=== PATIENT | female | born 1965 | race Caucasian/White ===

== ENCOUNTER → 2018-12-18 | Outpatient (CLI) | payer OTHER ==
[2018-12-18 14:54] LABS: Basophils % (A) 1 %; Eosinophils # (A) 0.1 k/uL (0-0.7); Eosinophils % (A) 2 %; HCT 44.4 % (34.0-46.0); HGB 14.6 gm/dL (11.4-16.0); Lymphocytes # (A) 1.2 k/uL (1.0-4.8); Lymphocytes % (A) 23 %; MCH 31.1 pg (25.0-35.0); MCHC 32.9 g/dL (31.0-37.0); MCV 94.4 fL (80.0-100.0); Mean Platelet Volume 8.2; Monocytes # (A) 0.3 k/uL (0-1.0); Monocytes % (A) 6 %; Neutrophils # (A) 3.5 k/uL (1.3-7.7); Neutrophils % (A) 66 %; Platelet Count 288 k/uL (150-450); RBC 4.71 m/uL (3.80-5.40); RDW 12.4 % (11.5-15.5); WBC 5.3 k/uL (3.8-10.6)
== END | disposition home or self-care (01) ==
LOC: LABPAT 13:38
PROVIDERS: ATTEND Obstetrics & Gynecology
DX: Z01.818 Encounter for other preprocedural examination (principal)
CPT/HCPCS: 36415; 85025; 93005

== ENCOUNTER 2018-12-28 06:29 | Day surgery (SDC) | payer OTHER ==
[2018-12-21 12:09] VITALS: BMI 23.3
--- NOTE | 2018-12-27 17:14 | P.HPOB ---
History of Present Illness H&P Date: 12/27/18 Chief Complaint: MAEVE-2 This is a 53-year-old female 1 para 1 who presents for loop electrocautery excision procedure with colposcopy secondary to MAEVE-2 found on colposcopy recently. Her Pap smear was read out as low-grade BENJAMIN and she did have positive high risk HPV. Colposcopy revealed MAEVE-1 and MAEVE-2. She has previously been treated with cryotherapy in her 20s. Obstetrical history: . History of 1 vaginal delivery. Gynecologic history: No other history of STDs. She does have a history of an abnormal Pap smear in her 20s and did receive cryo-. Her Pap smear in 2008 showed atypical squamous cells of undetermined significance with positive high risk HPV. Colposcopy at that time showed koilocytotic atypia. Repeat Pap smear in 2008 showed low-grade's, central epithelial lesion of the cervix. Pap smear in 2009 was within normal limits. Pap smear in 2010 showed low-grade. Most recent Pap smear in October 2018 shows low-grade with positive high-risk HPV. Social history: She is single. She has no current partner. She works as a manager business process. Review of Systems Constitutional: Reports fatigue, Reports night sweats, Denies chills, Denies fever Eyes: bilateral blurred vision, denies pain Ears, nose, mouth and throat: Denies headache, Denies sore throat Cardiovascular: Denies chest pain, Denies shortness of breath Respiratory: Denies cough Gastrointestinal: Denies abdominal pain, Denies diarrhea, Denies nausea, Denies vomiting Genitourinary: Reports stress incontinence, Denies dysuria, Denies hematuria Menstruation: Reports postmenopausal Musculoskeletal: Denies myalgias Integumentary: Denies pruritus, Denies rash Neurological: Denies numbness, Denies weakness Psychiatric: Reports anxiety Past Medical History Past Medical History: Osteoarthritis (OA) Additional Past Medical History / Comment(s): rectal abscess; endometriosis History of Any Multi-Drug Resistant Organisms: MRSA Date of last positivie culture/infection: 12/26/15 MDRO Source:: Buttock Past Surgical History: Orthopedic Surgery, Tonsillectomy Additional Past Surgical History / Comment(s): colonoscopy, surgery on left knee, right ankle. Laparoscopy-endometriosis. Breast augmentation. Several I &D of left groin abscess Past Anesthesia/Blood Transfusion Reactions: Postoperative Nausea & Vomiting ( PONV) Past Psychological History: Anxiety Smoking Status: Former smoker Past Alcohol Use History: Occasional Past Drug Use History: None Reported - Past Family History Sister(s) Family Medical History: Cancer Additional Family Medical History / Comment(s): OVARIAN CANCER Father Family Medical History: Cancer Additional Family Medical History / Comment(s): pancreatic cancer Mother Family Medical History: Cancer, Hypertension Medications and Allergies Home Medications Medication Instructions Recorded Confirmed Type Calcium Carbonate [Calcium] 1,200 mg PO DAILY 01/05/16 12/21/18 History Cholecalciferol [Vitamin D3] 1,000 unit PO DAILY 03/31/16 12/21/18 History Ascorbic Acid [Vitamin C] 500 mg PO BID 04/01/16 12/21/18 History Tetrahydrozoline HCl [Visine Eye 1 drop BOTH EYES DAILY PRN 04/01/16 12/21/18 History Drops] Turmeric Root Extract [Turmeric] 500 mg PO BID 12/21/18 12/21/18 History diphenhydrAMINE [Benadryl] 25 mg PO BID PRN 12/21/18 12/21/18 History Allergies Allergy/AdvReac Type Severity Reaction Status Date / Time adhesive Allergy Severe Rash/Hives Verified 12/21/18 11:36 amoxicillin Allergy Rash/Hives Verified 12/21/18 11:36 morphine AdvReac Vomiting Verified 12/21/18 11:36 Exam Osteopathic Statement: *. No significant issues noted on an osteopathic structural exam other than those noted in the History and Physical/Consult. HEENT: Within normal limits Heart: Regular rate and rhythm Lungs: Clear to auscultation bilaterally Abdomen: Soft, nontender Pelvic exam: Uterus is small, anteverted, nontender with no adnexal masses or tenderness palpated Extremities: Negative Homans Assessment and Plan (1) MAEVE II (cervical intraepithelial neoplasia II) Status: Acute Code(s): N87.1 - MODERATE CERVICAL DYSPLASIA SNOMED Code(s): 393016882 Plan: Proceed with loop electrocautery excision procedure with colposcopy. I have discussed the risks, benefits, and alternative therapies for the above- mentioned procedure and for both sedation/anesthesia as well as necessary blood products administration, if indicated, as they pertain to this patient. The patient has indicated her understanding and acceptance of the risks and procedures discussed.
[~2018-12-28 06:29] MED LIST: DEXAMETHASONE SOD PHOSPHATE 10 MG/ML 1 ML VIAL IV ONE; LACTATED RINGERS 1,000 ML IV SCH; LIDOCAINE 1% 20 ML VIAL (10MG/ML) FOR IV START INTRADERMA PRN; MIDAZOLAM 2 MG/2 ML VIAL IV PRN; ONDANSETRON 4 MG/2 ML VIAL IVP ONE; Pre Op ABX Message 1 EACH MISC MISCELLANE ONE; fentaNYL (PF) 50 MCG/ML 2 ML AMP IV PRN
[2018-12-28] MEDS ORDERED: LACTATED RINGERS 1,000 ML IV ONE (07:11)
[2018-12-28] MEDS ORDERED: PROPOFOL 10 MG/ML 20 ML VIAL IV ONE (07:29)
[2018-12-28] MEDS ORDERED: fentaNYL (PF) 50 MCG/ML 2 ML AMP ONE (07:29)
[2018-12-28] MEDS ORDERED: LIDOCAINE 1% INJ 10MG/ML (20 ML MDV) ONE (07:29)
[2018-12-28] MEDS ORDERED: ROPIVACAINE 5 MG/ML 30 ML VIAL MISCELLANE ONE ×2 (07:50)
[2018-12-28] MEDS ORDERED: LIDOCAINE 1%-EPI 1:100,000 20 ML VIAL SQ ONE ×2 (07:50)
[2018-12-28] MEDS ORDERED: ACETIC ACID 15 DROPS/ML DROPS MISCELLANE ONE (07:50)
[2018-12-28] MEDS ORDERED: FERRIC SUBSULFATE (MONSELS) JAR TOPICAL ONE (07:50)
--- NOTE | 2018-12-28 08:02 | P.OP ---
Date of Procedure: 12/28/18 Preoperative Diagnosis: MAEVE-2 Postoperative Diagnosis: Cervical dysplasia Procedure(s) Performed: Colposcopy with loop electrocautery excision procedure Anesthesia: other (Mask general) Surgeon: Marilyn Hilario Estimated Blood Loss (ml): 2 Pathology: other (Ectocervix-9 o'clock position marked with a suture and 3 o' clock position separate piece) Condition: stable Disposition: same day Indications for Procedure: This is a 53-year-old female 1 para 1 who presents for loop electrocautery excision procedure with colposcopy secondary to MAEVE-2 found on colposcopy recently. Her Pap smear was read out as low-grade BENJAMIN and she did have positive high risk HPV. Colposcopy revealed MAEVE-1 and MAEVE-2. She has previously been treated with cryotherapy in her 20s. Operative Findings: Colposcopy was performed using a blue light. Cervix was swabbed with acetic acid and Lugol solution. Some distortion of the ectocervix was noted at approximately 2:00 border. No mosaicism was noted. The same area appeared Lugol white. Description of Procedure: The patient was taken to the operating room she's placed in the dorsal lithotomy position. She is prepped and draped in the normal sterile fashion. Her bladder was drained with a catheter. A coated bivalve speculum was placed in the patient's vagina. Cervix is visualized. Colposcopy is performed using a blue light. Cervix is swabbed with 5% acetic acid solution. The above noted findings are made. Next the cervix is swabbed with Lugol solution. The same findings are noted. Next the cervix was circumferentially injected with a 50- 50 mixture of 1% lidocaine with epinephrine and half percent Marcaine. Approximately 7 mL were used to inject circumferentially around the cervix using a spinal needle. Next the large loop was used with 35 W cutting power to excise from left to right removing the ectocervix. There was still noted to be as piece on the 3:00 border that was removed separately. First pieces labeled at the 9 o'clock position with a suture. The separate piece is a 3 o'clock position. Next the bed that is left behind is cauterized with ball-tipped cautery. Excellent hemostasis is noted. Monsel solution is applied. Excellent hemostasis is noted. All instrument's are removed from the vagina. All sponge and needle counts are correct. The patient is then taken to recovery room in stable condition.
[2018-12-28 08:21] VITALS: TEMP 97.9
[2018-12-28 09:04] VITALS: RESP 16
[2018-12-28] MEDS ORDERED: MEPERIDINE 50 MG/ML SYRINGE IVP ONE (09:22)
[2018-12-28 09:53] VITALS: BP 102/64
[2018-12-28 10:13] VITALS: PULSE 55
== END 2018-12-28 10:45 | disposition home or self-care (01) ==
LOC: OR 06:29
PROVIDERS: ATTEND Obstetrics & Gynecology
DX: N87.1 Moderate cervical dysplasia (principal); N39.3 Stress incontinence (female) (male); F41.9 Anxiety disorder, unspecified; M19.90 Unspecified osteoarthritis, unspecified site; Z80.41 Family history of malignant neoplasm of ovary; Z86.14 Personal history of Methicillin resistant Staphylococcus aureus infection; Z87.891 Personal history of nicotine dependence; Z88.5 Allergy status to narcotic agent; Z88.0 Allergy status to penicillin; Z91.09 Other allergy status, other than to drugs and biological substances; Z80.8 Family history of malignant neoplasm of other organs or systems
CPT/HCPCS: 88307; 57460; J2250; J1100; J2175; J2405; J2001; J3010; J2795; J2704

== ENCOUNTER 2019-03-29 00:31 | Emergency (ER) | payer OTHER ==
[2019-03-29 00:39] VITALS: BP 143/80; PULSE 71; RESP 20; TEMP 97.7
[2019-03-29] MEDS ORDERED: CEPHALEXIN 500MG STARTER PACK 4 CAP BTL PO STA (01:13)
--- NOTE | 2019-03-29 01:15 | ED ---
Skin/Abscess/FB HPI - General Chief complaint: Skin/Abscess/Foreign Body Stated complaint: Rt Hand Index Finger Infection Time Seen by Provider: 03/29/19 00:44 Source: patient Mode of arrival: ambulatory Limitations: no limitations - History of Present Illness Initial comments: 54-year-old female presenting today for chief complaint of left index finger redness. Patient states she began noticing redness near the cuticle of her left index finger on Friday. Patient states it has since been increasing. Patient denies fever chills night sweats. Upon arrival patient appears well no signs of acute distress. Remaining review of system negative. Denies recent antibiotic use. - Related Data Home Medications Medication Instructions Recorded Confirmed Calcium Carbonate [Calcium] 1,200 mg PO DAILY 01/05/16 12/21/18 Cholecalciferol [Vitamin D3] 1,000 unit PO DAILY 03/31/16 12/21/18 Ascorbic Acid [Vitamin C] 500 mg PO BID 04/01/16 12/21/18 Tetrahydrozoline HCl [Visine Eye 1 drop BOTH EYES DAILY PRN 04/01/16 12/21/18 Drops] Turmeric Root Extract [Turmeric] 500 mg PO BID 12/21/18 12/21/18 diphenhydrAMINE [Benadryl] 25 mg PO BID PRN 12/21/18 12/21/18 Previous Rx's Medication Instructions Recorded Cephalexin [Keflex] 500 mg PO Q8HR 5 Days #15 cap 03/29/19 Allergies Allergy/AdvReac Type Severity Reaction Status Date / Time adhesive Allergy Severe Rash/Hives Verified 03/29/19 00:39 amoxicillin Allergy Rash/Hives Verified 03/29/19 00:39 morphine AdvReac Vomiting Verified 03/29/19 00:39 Review of Systems ROS Statement: Those systems with pertinent positive or pertinent negative responses have been documented in the HPI. ROS Other: All systems not noted in ROS Statement are negative. Past Medical History Past Medical History: Osteoarthritis (OA), Skin Disorder Additional Past Medical History / Comment(s): rectal abscess History of Any Multi-Drug Resistant Organisms: MRSA Date of last positivie culture/infection: 12/26/15 MDRO Source:: Buttock Past Surgical History: Orthopedic Surgery, Tonsillectomy Additional Past Surgical History / Comment(s): colonoscopy 2009 and 2014, surgery on left knee and right ankle. Past Anesthesia/Blood Transfusion Reactions: Postoperative Nausea & Vomiting (PONV) Past Psychological History: No Psychological Hx Reported Smoking Status: Former smoker Past Alcohol Use History: None Reported Past Drug Use History: None Reported - Past Family History Sister(s) Family Medical History: Cancer Additional Family Medical History / Comment(s): OVARIAN CANCER Father Family Medical History: Cancer Additional Family Medical History / Comment(s): pancreatic cancer Mother Family Medical History: Cancer, Hypertension General Exam - General Exam Comments Initial Comments: General: The patient is awake and alert, in no distress, and does not appear acutely ill. Eye: Pupils are equal, round and reactive to light, extra-ocular movements are intact. No nystagmus. There is normal conjunctiva bilaterally. No signs of icterus. Cardiovascular: There is a regular rate and rhythm. No murmur, rub or gallop is appreciated. Respiratory: Lungs are clear to auscultation, respirations are non-labored, breath sounds are equal. No wheezes, stridor, rales, or rhonchi. Musculoskeletal: Normal ROM, no tenderness. Strength 5/5. Sensation intact. Pulses equal bilaterally 2+. Neurological: A&O x 3. CN II-XII intact, There are no obvious motor or sensory deficits. Coordination appears grossly intact. Speech is normal. Skin: Skin is warm and dry and no rashes. Paronychia I of the left index finger. No evidence of failing Psychiatric: Cooperative, appropriate mood & affect, normal judgment. Limitations: no limitations Course Vital Signs 03/29/19 00:34 Temperature 97.7 F Pulse Rate 71 Respiratory 20 Rate Blood Pressure 143/80 O2 Sat by Pulse 100 Oximetry Procedures - Incision & Drainage Consent Obtained: verbal consent Site: hand (left index finger) Size (cm): 1 I&D Cleaning Method: Iodine Scalpel Used: #11 I&D Drainage Obtained: Pus, Blood Culture Obtained?: No Patient Tolerated Procedure: well, no complications Medical Decision Making - Medical Decision Making Paronychia on examination. I&D performed. Purulent drainage obtained. No evidence of failing. Patient is no constitutional symptoms. Afebrile upon arrival. Patient be started on Keflex and warm soaks at home. Return parameters were discussed with patient. Patient verbalizes understanding. Patient is discharged. Well stating she had pain relief from the I&D. Discussed case with . provider Dr. Figueroa who is agreeable care plan at discharge at this time Disposition Clinical Impression: Acute paronychia Disposition: HOME SELF-CARE Condition: Good Instructions (If sedation given, give patient instructions): Paronychia (ED) Additional Instructions: Please use medication as discussed. Please follow-up with family doctor in the next 2 days of symptoms have not improved. Please return to emergency room if the symptoms increase or worsen or for any other concerns. Prescriptions: Cephalexin [Keflex] 500 mg PO Q8HR 5 Days #15 cap Is patient prescribed a controlled substance at d/c from ED?: No Referrals: None,Stated [Primary Care Provider] - 1-2 days Time of Disposition: 01:14
== END 2019-03-29 01:50 | disposition home or self-care (01) ==
LOC: EC 00:31
DX: L03.012 Cellulitis of left finger (principal); M19.90 Unspecified osteoarthritis, unspecified site; Z86.14 Personal history of Methicillin resistant Staphylococcus aureus infection; Z87.891 Personal history of nicotine dependence; Z79.899 Other long term (current) drug therapy; Z88.0 Allergy status to penicillin; Z88.5 Allergy status to narcotic agent; Z91.048 Other nonmedicinal substance allergy status
CPT/HCPCS: 10060; 99282

== ENCOUNTER 2019-06-21 00:25 | Emergency (ER) | payer OTHER ==
[2019-06-21] MEDS ORDERED: LIDOCAINE 1% INJ 10MG/ML (20 ML MDV) SQ ONE (02:45)
[2019-06-21] MEDS ORDERED: IBUPROFEN 600 MG TAB PO STA (02:48)
[2019-06-21] MEDS ORDERED: ACETAMINOPHEN TAB 500 MG TAB PO STA (02:48)
--- NOTE | 2019-06-21 02:48 | ED ---
Skin/Abscess/FB HPI - General Chief complaint: Skin/Abscess/Foreign Body Stated complaint: Abscess Time Seen by Provider: 06/21/19 02:31 Source: patient Mode of arrival: ambulatory Limitations: no limitations - History of Present Illness Initial comments: 54 year-old female patient presents to the emergency department today for evaluation of abscess to the left parietal scalp. Patient states that she has had the abscess for the last 9-10 days. Patient states that she was seen and evaluated at [facility] on for this. States she was started on Bactrim and discharged. She states he did not perform incision and drainage of the area. Patient states that the abscess seems to be worsening. States that she is having pain to the area as well as a generalized headache from this. She denies any fever or chills. Denies any nausea or vomiting. Patient states that she has had abscesses in the past and has been diagnosed wit h MRSA. She denies any history of abscess to the scalp. Patient denies any recent rash, shortness breath, chest pain, abdominal pain, diarrhea, constipation, back pain, numbness, tingling, dizziness, weakness, hematuria, dysuria, urinary urgency, urinary frequency, visual changes, or any other complaints. - Related Data Home Medications Medication Instructions Recorded Confirmed Calcium Carbonate [Calcium] 1,200 mg PO DAILY 01/05/16 12/21/18 Cholecalciferol [Vitamin D3 (25 1,000 unit PO DAILY 03/31/16 12/21/18 Mcg = 1000 Iu)] Ascorbic Acid [Vitamin C] 500 mg PO BID 04/01/16 12/21/18 Tetrahydrozoline HCl [Visine Eye 1 drop BOTH EYES DAILY PRN 04/01/16 12/21/18 Drops] Turmeric Root Extract [Turmeric] 500 mg PO BID 12/21/18 12/21/18 diphenhydrAMINE [Benadryl] 25 mg PO BID PRN 12/21/18 12/21/18 Previous Rx's Medication Instructions Recorded Cephalexin [Keflex] 500 mg PO Q8HR 5 Days #15 cap 03/29/19 Sulfamethoxazole/Trimethoprim 2 each PO BID #40 tablet 06/21/19 [Bactrim DS 800-160 mg] Allergies Allergy/AdvReac Type Severity Reaction Status Date / Time adhesive Allergy Severe Rash/Hives Verified 03/29/19 00:39 amoxicillin Allergy Rash/Hives Verified 03/29/19 00:39 morphine AdvReac Vomiting Verified 03/29/19 00:39 Review of Systems ROS Statement: Those systems with pertinent positive or pertinent negative responses have been documented in the HPI. ROS Other: All systems not noted in ROS Statement are negative. Past Medical History Past Medical History: Osteoarthritis (OA), Skin Disorder Additional Past Medical History / Comment(s): rectal abscess History of Any Multi-Drug Resistant Organisms: MRSA Date of last positivie culture/infection: 12/26/15 MDRO Source:: Buttock Past Surgical History: Orthopedic Surgery, Tonsillectomy Additional Past Surgical History / Comment(s): colonoscopy 2009 and 2014, surgery on left knee and right ankle. Past Anesthesia/Blood Transfusion Reactions: Postoperative Nausea & Vomiting (PONV) Past Psychological History: No Psychological Hx Reported Smoking Status: Current every day smoker Past Alcohol Use History: Rare Past Drug Use History: None Reported - Past Family History Sister(s) Family Medical History: Cancer Additional Family Medical History / Comment(s): OVARIAN CANCER Father Family Medical History: Cancer Additional Family Medical History / Comment(s): pancreatic cancer Mother Family Medical History: Cancer, Hypertension General Exam Limitations: no limitations General appearance: alert, in no apparent distress, other (Physical well- developed, well-nourished adult female patient in no acute distress. Vital signs upon presentation are temperature 97.6F, pulse 75, respirations 18, blood pressure 122/73, pulse ox 98% on room air.) Head exam: Present: other (There is abscess noted to the left parietal scalp, there is surrounding erythema and a central fluctuant area. No current drainage.) Respiratory exam: Present: normal lung sounds bilaterally. Absent: respiratory distress, wheezes, rales, rhonchi, stridor Cardiovascular Exam: Present: regular rate, normal rhythm, normal heart sounds. Absent: systolic murmur, diastolic murmur, rubs, gallop, clicks GI/Abdominal exam: Present: soft, normal bowel sounds. Absent: distended, tenderness, guarding, rebound, rigid Neurological exam: Present: alert, oriented X3, CN II-XII intact Psychiatric exam: Present: normal affect, normal mood Skin exam: Present: warm, dry, intact, normal color. Absent: rash Course Vital Signs 06/21/19 00:28 Temperature 97.6 F Pulse Rate 75 Respiratory 18 Rate Blood Pressure 122/73 O2 Sat by Pulse 98 Oximetry Procedures - Incision & Drainage Consent Obtained: verbal consent Indication: Abscess Site: scalp Size (cm): 2 Anesthetic Used: lidocaine 1%, with epi Amount (mLs): 2 I&D Cleaning Method: Betadine Scalpel Used: #11 Needle Aspiration Performed?: No Irrigation Performed?: No I&D Drainage Obtained: Pus, Blood Culture Obtained?: Yes Patient Tolerated Procedure: well, no complications Medical Decision Making - Medical Decision Making 54-year-old female patient presented to the emergency department today for evaluation of abscess to the left parietal scalp. Physical examination did reveal a 2 cm x 2 cm abscess to the left parietal scalp with surrounding erythema consistent with cellulitis. Patient was started on Bactrim on . She states he did not perform incision and drainage. Incision and drainage was completed here. He did have bloody purulent output. This was cultured. Patient is instructed to apply warm compresses to the area 4-5 times daily. We'll increase Bactrim to 2 tablets 2 times daily. She is instructed to follow-up with her primary care physician for recheck of the area in 1-2 days. Return parameters were discussed in detail. She verbalizes understanding and agrees this plan. Disposition Clinical Impression: Scalp abscess Disposition: HOME SELF-CARE Condition: Good Instructions (If sedation given, give patient instructions): Abscess Incision and Drainage (ED), Abscess (ED) Additional Instructions: Apply warm compresses to the affected area 4-5 times daily. Complete antibiotic prescription and full. Follow-up with your primary care physician for recheck in 1-2 days. Return to the emergency department immediately for any new, worsening, or concerning symptoms. Prescriptions: Sulfamethoxazole/Trimethoprim [Bactrim DS 800-160 mg] 2 each PO BID #40 tablet Is patient prescribed a controlled substance at d/c from ED?: No Referrals: None,Stated [Primary Care Provider] - 1-2 days Time of Disposition: 03:31
[2019-06-21] MEDS ORDERED: LIDOCAINE 0.5%-EPI 1:200,000 50 ML VIAL SQ STA (03:19)
[2019-06-21] MEDS ORDERED: LIDOCAINE 1%-EPI 1:100,000 20 ML VIAL SQ STA (03:29)
[2019-06-21 03:48] VITALS: BP 123/72; PULSE 77; RESP 20; TEMP 97.5
== END 2019-06-21 03:48 | disposition home or self-care (01) ==
LOC: EC 00:25
DX: L02.811 Cutaneous abscess of head [any part, except face] (principal); F17.200 Nicotine dependence, unspecified, uncomplicated; Z88.0 Allergy status to penicillin; Z88.5 Allergy status to narcotic agent; Z91.048 Other nonmedicinal substance allergy status
CPT/HCPCS: 10060; 87070; 87205; 99283

== ENCOUNTER → 2019-09-01 | Outpatient (CLI) | payer OTHER ==
--- NOTE | 2019-09-01 12:22 | BD ---
EXAMINATION TYPE: Axial Bone Density DATE OF EXAM: 09/01/2019 COMPARISON: NONE CLINICAL HISTORY: post menopausal Height: 5'4 Weight: 134 FRAX RISK QUESTIONS: History of Fracture in Adulthood: y Secondary Osteoporosis: 3. Menopause before 45: y Current Tobacco Use: y RISK FACTORS HISTORY OF: History of Wrist Fracture: y rt When: age 7 Family History of Osteoporosis: y Postmenopausal woman: y MEDICATIONS: Additional Medications: Additional History: EXAM MEASUREMENTS: Bone mineral densitometry was performed using the 2 Minutes System. Bone mineral density as measured about the Lumbar spine is: ----- L1-L4(G/cm2): 0.801 T Score Values are as follows: ----- L2: -3.6 ----- L3: -3.1 ----- L4: -2.6 ----- L1-L4: -3.2 Bone mineral density about the R hip (g/cm2): 0.840 Bone mineral density about the L hip (g/cm2): 0.818 T Score values are as follows: -----R Neck: -1.4 -----L Neck: -1.6 -----R Total: -1.0 -----L Total: -1.0 IMPRESSION: 1. Osteoporosis lumbar spine. NOTE: T-SCORE=SD OF THE YOUNG ADULT MEAN.
--- NOTE | 2019-09-02 11:29 | MM ---
Reason for exam: screening (asymptomatic). Last mammogram was performed 9 years and 10 months ago. History: Patient is postmenopausal and had first child at age 29. Family history of breast cancer in aunt at age 70. Retro-pectoral saline implants in both breasts, 2006. Core biopsy of the right breast, 2001. Physical Findings: A clinical breast exam by your physician is recommended on an annual basis and results should be correlated with mammographic findings. MG 3D Screen Mammo Imp/Cad Bilateral CC, MLO, and ID view(s) were taken. Prior study comparison: November 07, 2009, bilateral diagnostic digital mammog. September 29, 2008, bilateral diagnostic digital mammog. The breast tissue is heterogeneously dense. This may lower the sensitivity of mammography. No suspicious abnormality. Bilateral retroareolar saline implants, new from 2008. ASSESSMENT: Negative, BI-RAD 1 RECOMMENDATION: Routine screening mammogram of both breasts in 1 year. Manage patient on a clinical basis. Initial physical exam is necessary. If true localized only nipple pain, surgical consultation with breast surgeon recommended. If breast or retroareolar pain, left breast ultrasound is recommended.
== END | disposition home or self-care (01) ==
LOC: RADMAMWWP 09:04
PROVIDERS: ATTEND Obstetrics & Gynecology
DX: Z12.31 Encounter for screening mammogram for malignant neoplasm of breast (principal); M81.8 Other osteoporosis without current pathological fracture; N95.1 Menopausal and female climacteric states; Z13.820 Encounter for screening for osteoporosis
CPT/HCPCS: 77063; 77067; 77080

== ENCOUNTER → 2019-10-21 | Outpatient (CLI) | payer OTHER ==
--- NOTE | 2019-10-21 11:18 | US ---
EXAMINATION TYPE: US thyroid st tissue head/neck DATE OF EXAM: 10/21/2019 COMPARISON: NONE CLINICAL HISTORY: R22.1 Swelling, mass, lump in neck. GLAND SIZE: Right Lobe: 4.8 x 1.6 x 1.3 cm Overall Parenchyma: heterogenous Left Lobe: 4.7 x 1.6 x 1.5 cm Overall Parenchyma: heterogeneous Isthmus Thickness: 0.4 cm NODULES RIGHT: # of nodules measured on right: 0 LEFT: # of nodules measured on left: 4 1. 0.4 X 0.4 x 0.4 cm hypoechoic solid nodule at the upper pole with well-defined margins; . This nodule is wider than tall and shows no intranodular vascularity. Prior size: No previous 2. 0.7 X 0.5 x 0.5 cm hypoechoic solid nodule at the mid pole with well-defined margins; . This nod ule is wider than tall and shows intranodular vascularity. Prior size: No previous 3. 1.2 X 1.2 x 0.9 cm isoechoic solid nodule at the mid pole with well-defined margins; . This nodu le is wider than tall and shows intranodular vascularity. Prior size: No previous 4. 1.2 X 1.1 x 1.0 cm isoechoic solid nodule at the lower pole with well-defined margins; . This no dule is wider than tall and shows intranodular vascularity. Prior size: No previous ISTHMUS: # of nodules measured in the isthmus: 0 Bilateral neck scanned, no evidence of lymphadenopathy. IMPRESSION: Nonspecific thyroid nodularity. The need to biopsy should be made on a clinical basis.
== END | disposition home or self-care (01) ==
LOC: RADUSWWP 10:11
PROVIDERS: ATTEND Otolaryngology
DX: R22.1 Localized swelling, mass and lump, neck (principal)
CPT/HCPCS: 76536

== ENCOUNTER 2019-12-02 09:38 | Day surgery (SDC) | payer OTHER ==
[2019-12-02 10:00] VITALS: RESP 14; TEMP 98.2
[2019-12-02 11:23] VITALS: BP 114/73; PULSE 67
--- NOTE | 2019-12-02 11:37 | US ---
ULTRASOUND GUIDED FNA THYROID BIOPSY: CLINICAL HISTORY: Request for 2 left-sided thyroid nodules for FNA FINDINGS: The procedure was explained to the patient. The risks, complications, benefits and alternatives were discussed and any questions were answered. Informed consent was obtained. Patient was placed supin e on the ultrasound table and prepped and draped in the usual sterile fashion. Utilizing a 25 gauge needle, five passes were made into the requested two left thyroid nodules. Patient was stable throughout the procedure. Pathology is pending. All elements of maximal barrier technique were utilized. IMPRESSION: 1. Successful ultrasound guided FNA thyroid biopsy.
== END 2019-12-02 11:02 | disposition home or self-care (01) ==
LOC: RADPROMAIN 09:38
PROVIDERS: ATTEND Otolaryngology
DX: E04.2 Nontoxic multinodular goiter (principal)
CPT/HCPCS: 10005; 10006; 88173; 88305

== ENCOUNTER → 2019-12-25 | Outpatient (CLI) | payer OTHER ==
[2019-12-25 16:48] LABS: T4, Free (Free Thyroxine) 1.4 ng/dL (0.80-1.80)
== END | disposition home or self-care (01) ==
LOC: LABWHC1 12:04
PROVIDERS: ATTEND Nurse Practitioner Family
DX: E01.0 Iodine-deficiency related diffuse (endemic) goiter (principal); R53.83 Other fatigue
CPT/HCPCS: 36415; 82306; 84439; 84443; 86376

== ENCOUNTER 2020-02-11 22:32 | Emergency (ER) | payer OTHER ==
--- NOTE | 2020-02-11 23:05 | ED ---
General Adult HPI - General Chief complaint: Upper Respiratory Infection Stated complaint: Lung pain Time Seen by Provider: 02/11/20 22:47 Source: patient, RN notes reviewed Mode of arrival: ambulatory Limitations: no limitations - History of Present Illness Initial comments: 55-year-old female with a past medical history of bronchitis, thyroid nodules presents to the emergency department for a chief complaint of cough. Patient has had a cough for 11 days. States that she felt like she had a fever today. She states she feels her chest is congested but otherwise denies shortness of breath or chest pain. Patient denies any domestic or foreign travel history in the past 14 days. Pt states she also has a fungal infection on the sides of her trunk as well as her lower extremities. Patient saw her manager stylist 5 months ago for this and they prescribed her a medication that she refused to take because of the side effects. She never followed up or told them she did not want to take these medications.Patient has no other complaints at this time including shortness of breath, chest pain, abdominal pain, nausea or vomiting, headache, or visual changes. - Related Data Home Medications Medication Instructions Recorded Confirmed Calcium Carbonate [Calcium] 1,200 mg PO DAILY 01/05/16 12/02/19 Cholecalciferol [Vitamin D3 (25 5,000 unit PO DAILY 03/31/16 12/02/19 Mcg = 1000 Iu)] Ascorbic Acid [Vitamin C] 500 mg PO BID 04/01/16 12/02/19 Turmeric Root Extract [Turmeric] 500 mg PO TID 12/21/18 12/02/19 Magnesium 1 tab PO DAILY 10/27/19 12/02/19 Potassium 99 mg PO DAILY 10/27/19 12/02/19 Vitamin B Complex/Folic Acid 1 tab PO DAILY 10/27/19 12/02/19 [B-Complex Tablet] Vitamin E 1 cap PO DAILY 12/02/19 12/02/19 Previous Rx's Medication Instructions Recorded Azithromycin [Zithromax Z-pack] 250 mg PO DIRECTED #6 tab 02/12/20 Allergies Allergy/AdvReac Type Severity Reaction Status Date / Time adhesive Allergy Severe Rash/Hives Verified 02/11/20 22:43 amoxicillin Allergy Rash/Hives Verified 02/11/20 22:43 hydromorphone [From Dilaudid] Allergy facial Verified 02/11/20 22:43 swelling Penicillins Allergy Rash/Hives Verified 02/11/20 22:43 morphine AdvReac Vomiting Verified 02/11/20 22:43 Review of Systems ROS Statement: Those systems with pertinent positive or pertinent negative responses have been documented in the HPI. ROS Other: All systems not noted in ROS Statement are negative. Past Medical History Past Medical History: Osteoarthritis (OA), Skin Disorder Additional Past Medical History / Comment(s): rectal abscess, ear infection, thyroid nodules, bronchitis, History of Any Multi-Drug Resistant Organisms: MRSA Date of last positivie culture/infection: 06/21/19, MDRO Source:: scalp Past Surgical History: Orthopedic Surgery, Tonsillectomy Additional Past Surgical History / Comment(s): colonoscopy 2009 and 2014, surgery on left knee and right ankle. Past Anesthesia/Blood Transfusion Reactions: Postoperative Nausea & Vomiting (PONV) Past Psychological History: No Psychological Hx Reported Smoking Status: Current every day smoker Past Alcohol Use History: None Reported Past Drug Use History: None Reported - Past Family History Sister(s) Family Medical History: Cancer Additional Family Medical History / Comment(s): OVARIAN CANCER Father Family Medical History: Cancer Additional Family Medical History / Comment(s): pancreatic cancer Mother Family Medical History: Cancer, Hypertension General Exam Limitations: no limitations General appearance: alert, in no apparent distress Head exam: Present: atraumatic, normocephalic, normal inspection Eye exam: Present: normal appearance, PERRL, EOMI. Absent: scleral icterus, conjunctival injection, periorbital swelling ENT exam: Present: normal exam, normal oropharynx, mucous membranes moist, TM's normal bilaterally, normal external ear exam Neck exam: Present: normal inspection, full ROM. Absent: tenderness, meningismus, lymphadenopathy Respiratory exam: Present: normal lung sounds bilaterally. Absent: respiratory distress, wheezes, rales, rhonchi, stridor Cardiovascular Exam: Present: regular rate, normal rhythm, normal heart sounds. Absent: systolic murmur, diastolic murmur, rubs, gallop, clicks GI/Abdominal exam: Present: soft, normal bowel sounds. Absent: distended, tenderness, guarding, rebound, rigid Neurological exam: Present: alert Course Vital Signs 02/11/20 02/11/20 22:37 23:03 Temperature 98.8 F Pulse Rate 92 Respiratory 18 20 Rate Blood Pressure 112/67 O2 Sat by Pulse 99 Oximetry Medical Decision Making - Medical Decision Making Vitals are stable. Patient is well-appearing. No history of asthma or COPD. No smoking history. Lungs are clear bilaterally. Influenza is negative. Chest x-ray does show right middle lobe pneumonia. Patient was given azithromycin. Discussed follow-up with primary care to ensure resolution. Discussed returning for any worsening symptoms. - Lab Data Lab Results 02/11/20 Range/Units 23:03 Influenza Type A RNA Not Detected (Not Detectd) Influenza Type B (PCR) Not Detected (Not Detectd) Disposition Clinical Impression: Pneumonia Disposition: HOME SELF-CARE Condition: Good Instructions (If sedation given, give patient instructions): Pneumonia (ED) Additional Instructions: Please take antibiotic as directed. Follow-up with primary care in 1-2 days for a recheck. Follow-up to ensure resolution. Return to the emergency department for any worsening symptoms. Prescriptions: Azithromycin [Zithromax Z-pack] 250 mg PO DIRECTED #6 tab Is patient prescribed a controlled substance at d/c from ED?: No Referrals: Susana Bhagat MD [REFERRING] - 1-2 days Time of Disposition: 00:02
--- NOTE | 2020-02-11 23:35 | XR ---
EXAMINATION TYPE: XR chest 2V DATE OF EXAM: 02/11/2020 COMPARISON: NONE HISTORY: Fever TECHNIQUE: 2 views FINDINGS: There is a 5 cm patch of poorly marginated infiltrate in the right middle lobe anteriorly. The other lung roblero are clear. Heart and mediastinum are normal. Diaphragm is normal. Bony thorax a ppears normal. IMPRESSION: Right middle lobe pneumonia. Normal heart.
[2020-02-11] MEDS ORDERED: AZITHROMYCIN 500 MG TAB PO STA (23:40)
[2020-02-12 00:36] VITALS: BP 115/60; PULSE 89; RESP 18; TEMP 98.2
== END 2020-02-12 00:37 | disposition home or self-care (01) ==
LOC: EC 22:32
DX: J18.9 Pneumonia, unspecified organism (principal); B36.9 Superficial mycosis, unspecified; F17.200 Nicotine dependence, unspecified, uncomplicated; Z88.0 Allergy status to penicillin; Z88.5 Allergy status to narcotic agent; Z91.048 Other nonmedicinal substance allergy status; Z86.14 Personal history of Methicillin resistant Staphylococcus aureus infection; Z90.89 Acquired absence of other organs
CPT/HCPCS: 71046; 87502; 99283

== ENCOUNTER 2021-03-05 09:24 | Day surgery (SDC) | payer OTHER ==
[2021-03-05] MEDS ORDERED: LACTATED RINGERS 1,000 ML IV SCH (09:43)
[2021-03-05 09:54] VITALS: RESP 16; TEMP 98
[2021-03-05] MEDS ORDERED: LIDOCAINE 1% INJ 10MG/ML (20 ML MDV) ONE (10:29)
[2021-03-05] MEDS ORDERED: PROPOFOL 10 MG/ML 20 ML VIAL IV ONE (10:29)
--- NOTE | 2021-03-05 11:03 | P.PCN ---
Date of Procedure: 03/05/21 Description of Procedure: BRIEF HISTORY: Patient is a 56-year-old female presented for outpatient colonoscopy for change in bowel habits. Last colonoscopy 5 years ago with polypectomy. Patient was seen in the GI clinic reporting symptoms of foul-smelling loose bowel movements. She does report increased stress in her life. PROCEDURE PERFORMED: Colonoscopy with biopsy and polypectomy. PREOPERATIVE DIAGNOSIS: Altered bowel function, personal history of colon polyp, last colonoscopy 5 years ago. ESTIMATED BLOOD LOSS: Minimal. IV sedation per Anesthesia. PROCEDURE: After informed consent was obtained, the patient, was brought into the endoscopy unit. IV sedation was administered by Anesthesia under continuous monitoring. Digital rectal examination was normal. Initially the Olympus CF-190 flexible video colonoscope was then inserted in the rectum, gradually advanced into the cecum without any difficulty. Careful examination was performed as the scope was gradually being withdrawn. Ileocecal valve and the appendiceal orifice were visualized and appeared normal. Prep was excellent. Mucosa of the cecum, ascending colon, transverse colon, descending colon, sigmoid colon, and rectum appeared normal, with a normal-appearing terminal ileum and random biopsies ta melany of the right colon, left colon and terminal ileum in the setting of altered bowel function. A diminutive 3 mm rectal polyp was removed with cold snare polypectomy. Internal hemorrhoids were noted. Retroflexion was performed in the rectum and no lesions were seen. The patient tolerated the procedure well. IMPRESSION: Rectal polyp removed with cold snare polypectomy. Internal hemorrhoids. Random biopsies taken of the right colon, left colon and terminal ileum in the setting of altered bowel function, otherwise normal-appearing colon from rectum to cecum and terminal ileum. RECOMMENDATIONS: Findings of this examination were discussed with the patient and her family. Okay to resume diet. Okay to resume medications. Await pathology from biopsies and polypectomy. Recommend repeat colonoscopy in 7 years for colon polyp any pathology from polypectomy.
[2021-03-05 11:21] VITALS: BP 123/75; PULSE 82
== END 2021-03-05 11:45 | disposition home or self-care (01) ==
LOC: ORWHC2ENDO 09:24
PROVIDERS: ATTEND Internal Medicine
DX: D12.8 Benign neoplasm of rectum (principal); K64.8 Other hemorrhoids; F43.9 Reaction to severe stress, unspecified; M19.90 Unspecified osteoarthritis, unspecified site; D89.89 Other specified disorders involving the immune mechanism, not elsewhere classified; Z86.010 Personal history of colon polyps; Z91.09 Other allergy status, other than to drugs and biological substances; Z88.0 Allergy status to penicillin; Z88.5 Allergy status to narcotic agent; Z90.89 Acquired absence of other organs; Z98.890 Other specified postprocedural states; Z87.19 Personal history of other diseases of the digestive system; Z91.89 Other specified personal risk factors, not elsewhere classified
CPT/HCPCS: 88305; 45380; 45385; J2001; J2704

== ENCOUNTER → 2021-03-23 | Outpatient (CLI) | payer OTHER ==
--- NOTE | 2021-03-23 20:07 | US ---
EXAMINATION TYPE: US thyroid st tissue head/neck DATE OF EXAM: 03/23/2021 COMPARISON: US CLINICAL HISTORY: E04.1 Thyroid Nodule. Palpable upper neck with soreness to left submandibular area last week. GLAND SIZE: Right Lobe: 4.5 x 1.6 x 1.2 cm Overall Parenchyma: homogenous Left Lobe: 5.0 x 1.7 x 1.5 cm Overall Parenchyma: homogeneous Isthmus Thickness: 0.3 cm NODULES RIGHT: # of nodules measured on right: largest on multiple small hypoechoic nodules 1. 0.3 X 0.2 x 0.1 cm, mid pole, spongiform, hypoechoic nodule, which is wider than tall, with ill- defined margins, without echogenic foci. Prior size: no prior LEFT: # of nodules measured on left: 3 largest of multiple 1. 1.5 X 1.0 x 1.0 cm, upper pole, consolidation of solid or almost completely solid, hypoechoic no dule, which is wide as is tall, with lobulated or irregular margins, without echogenic foci. Prior size: 2 separate nodules were previously seen 2. 1.3 X 1.3 x 0.9 cm, mid pole, solid or almost completely solid, hyperechoic nodule, which is ta ller than wide, with lobulated or irregular margins, without echogenic foci. Prior size: 1.2 x 1.2 x 0.9 cm 3. 1.1 X 1.1 x 0.9 cm, lower pole, solid or almost completely solid, isoechoic nodule, which is wid er than tall, with ill-defined margins, without echogenic foci. Prior size: 1.2 x 1.1 x 1.0 cm ISTHMUS: # of nodules measured in the isthmus: 0 Bilateral neck scanned: superior to right thyroid an oval, hypoechoic mass is noted = 2.2 x 0.8 x 0.5 cm. Consistent with lymph node Superior to left thyroid gland at patient's area of concern the subman dibular gland is noted. IMPRESSION: Mildly suspicious, follow-up in one year, TR 3 2017 ACR TI-RADS LEVEL: 3 *Highest TI-RADS level nodule reported
== END | disposition home or self-care (01) ==
LOC: RADUSWWP 16:54
PROVIDERS: ATTEND Otolaryngology
DX: E04.1 Nontoxic single thyroid nodule (principal)
CPT/HCPCS: 76536

== ENCOUNTER → 2022-07-30 | Outpatient (CLI) | payer OTHER ==
[2022-07-30 22:52] LABS: Anion Gap 7.9 mmol/L (10.00-18.00); Potassium 4.8 mmol/L (3.5-5.5)
[2022-07-31 01:22] LABS: Basophils # (A) 0.08 X 10*3/uL (0.00-0.10); Basophils % (A) 1.2 %; Eosinophils # (A) 0.07 X 10*3/uL (0.04-0.35); Eosinophils % (A) 1.1 %; HCT 40.5 % (37.2-46.3); HGB 13.4 g/dL (12.0-15.0); Immature Grans, Automated 0.6 %; Lymphocytes # (A) 1.17 X 10*3/uL (0.90-5.00); Lymphocytes % (A) 17.7 %; MCH 30.5 pg (27.0-32.0); MCHC 33.1 g/dL (32.0-37.0); Mean Platelet Volume 11.9 fL (9.5-12.2); Monocytes # (A) 0.53 X 10*3/uL (0.20-1.00); NRBC Per 100 WBC 0 /100 WBCS (0.0-0.0); Neutrophils # (A) 4.72 X 10*3/uL (1.80-7.70); Neutrophils % (A) 71.4 %; Platelet Count 264 X 10*3/uL (140-440); RDW 12.7 % (11.5-14.5); WBC 6.61 X 10*3/uL (4.50-10.00)
== END | disposition home or self-care (01) ==
LOC: LABPAT 14:51
PROVIDERS: ATTEND Orthopaedic Surgery Hand Surgery
DX: Z01.818 Encounter for other preprocedural examination (principal); R94.31 Abnormal electrocardiogram [ECG] [EKG]
CPT/HCPCS: 80051; 85025; 93005

== ENCOUNTER → 2023-03-27 | Outpatient (CLI) | payer OTHER ==
[2023-03-27 19:32] LABS: Basophils # (A) 0.05 X 10*3/uL (0.00-0.10); Basophils % (A) 0.9 %; Eosinophils # (A) 0.07 X 10*3/uL (0.04-0.35); Eosinophils % (A) 1.2 %; HCT 42.5 % (37.2-46.3); HGB 13.7 g/dL (12.0-15.0); Immature Grans, Automated 0.2 %; Lymphocytes % (A) 22.8 %; MCH 30.5 pg (27.0-32.0); MCHC 32.2 g/dL (32.0-37.0); MCV 94.7 fL (80.0-97.0); Mean Platelet Volume 11.3 fL (9.5-12.2); Monocytes # (A) 0.48 X 10*3/uL (0.20-1.00); Monocytes % (A) 8.4 %; NRBC Per 100 WBC 0 /100 WBCS (0.0-0.0); Neutrophils % (A) 66.5 %; Platelet Count 297 X 10*3/uL (140-440); RBC 4.49 X 10*6/uL (4.10-5.20); RDW 12.8 % (11.5-14.5); WBC 5.71 X 10*3/uL (4.50-10.00)
[2023-03-27 20:31] LABS: ALT 17 U/L (8-44); AST 20 U/L (13-35)
== END | disposition home or self-care (01) ==
LOC: LABWHC1 03-26 09:58
PROVIDERS: ATTEND Student in an Organized Health Care Education/Training Program
DX: L40.0 Psoriasis vulgaris (principal); L92.0 Granuloma annulare
CPT/HCPCS: 36415; 84450; 84460; 85025; 86480

== ENCOUNTER → 2024-01-02 | Outpatient (CLI) | payer OTHER ==
[2024-01-03 02:36] LABS: Basophils # (A) 0.06 X 10*3/uL (0.00-0.10); Basophils % (A) 0.9 %; Eosinophils # (A) 0.11 X 10*3/uL (0.04-0.35); Eosinophils % (A) 1.7 %; HCT 43.9 % (37.2-46.3); Lymphocytes # (A) 1.52 X 10*3/uL (0.90-5.00); Lymphocytes % (A) 23.2 %; MCH 29.6 pg (27.0-32.0); MCHC 31.9 g/dL (32.0-37.0); MCV 92.8 FL (80.0-97.0); Mean Platelet Volume 11.2 FL (9.5-12.2); Monocytes # (A) 0.57 X 10*3/uL (0.20-1.00); Monocytes % (A) 8.7 %; NRBC Per 100 WBC 0 X 10*3/uL (0.00-0.01); Neutrophils # (A) 4.27 X 10*3/uL (1.80-7.70); Neutrophils % (A) 65.3 %; Platelet Count 289 X 10*3/uL (140-440); RBC 4.73 X 10*6/uL (4.10-5.20); RDW 12.1 % (11.5-14.5); WBC 6.54 X 10*3/uL (4.50-10.00)
[2024-01-03 03:02] LABS: ALT 18 U/L (8-44); AST 21 U/L (13-35); Albumin 4.4 g/dL (3.8-4.9); Albumin/Globulin Ratio 2.32 Ratio (1.60-3.17); Alkaline Phosphatase 53 U/L (41-126); Calcium 9.8 mg/dL (8.7-10.3); Carbon Dioxide 28.3 mmol/L (21.6-31.8); Chloride 106 mmol/L (96-109); Globulin 1.9 g/dL (1.6-3.3); Glucose 107 mg/dL (70-110); Potassium 5.3 mmol/L (3.5-5.5); Sodium 146 mmol/L (135-145); Total Bilirubin 0.3 mg/dL (0.3-1.2); Total Protein 6.3 g/dL (6.2-8.2)
== END | disposition home or self-care (01) ==
LOC: LABWHC1 16:13
PROVIDERS: ATTEND Dermatology
DX: L92.0 Granuloma annulare (principal)
CPT/HCPCS: 36415; 80053; 85025

== ENCOUNTER → 2024-01-16 | Outpatient (CLI) | payer OTHER ==
--- NOTE | 2024-01-16 17:31 | BD ---
EXAMINATION TYPE: Axial Bone Density DATE OF EXAM: 01/16/2024 CLINICAL HISTORY: 59 years old Female. ICD-10 CODE: M81.0 AGE RELATED OSTEOPOROSIS Height: 5 ft 4 in Weight: 136 FRAX RISK QUESTIONS: Alcohol (3 or more units per day): no Family History (Parent hip fracture): no Glucocorticoids (More than 3mos): no (Ex: prednisone, prednisolone, methylprednisolone, dexamethasone, and hydrocortisone). History of Fracture in Adulthood: yes Secondary Osteoporosis: 1. Type 1 Diabetes: no 2. Hyperthyroidism: no 3. Menopause before 45: no 4. Malnutrition: no 5. Chronic liver disease: no Rheumatoid Arthritis: no Current Tobacco Use: no RISK FACTORS HISTORY OF: History of Wrist Fracture: rt When: 2021 Surgery to Spine/Hip(right/left)/Wrist (right/left): rt wrist When: 2021 MEDICATIONS: Thyroid Medications: none Osteoporosis Medications: none EXAM MEASUREMENTS: Bone mineral densitometry was performed using the [employer] System. Bone mineral density as measured about the Lumbar spine is: ----- L1-L4(G/cm2): 0.819 T Score Values are as follows: ----- L1: -3.3 ----- L2: -3.6 ----- L3: -3.2 ----- L4: -2.3 ----- L1-L4: -3.0 Z Score Values are as follows: ----- L1: -1.9 ----- L2: -2.2 ----- L3: -1.9 ----- L4: -0.9 ----- L1-L4: -1.6 Bone mineral density has: increased 2.2 % since study of: 2019 Bone mineral density about the R hip (g/cm2): 0.799 Bone mineral density about the L hip (g/cm2): 0.748 T Score values are as follows: -----R Neck: -1.7 -----L Neck: -2.1 -----R Total: -1.6 -----L Total: -1.4 Z Score values are as follows: -----R Neck: -0.4 -----L Neck: -0.7 -----R Total: -0.5 -----L Total: -0.3 Bone mineral density has: decreased -6.7 % since study of: 2019 FRAX%s: The graph provided illustrates a 16.7 % chance for a major osteoporotic fx and a 2.6 % chance for the hips probability for fx in 10 years time. IMPRESSION: Osteoporosis (T Score less than -2.5). There is increased fracture risk and therapy is usually indicated based on age. Re-Screen 1-2 years. NOTE: T-SCORE=SD OF THE YOUNG ADULT MEAN.
--- NOTE | 2024-01-19 19:45 | MM ---
Reason for Exam: Screening (asymptomatic). Last mammogram was performed 4 year(s) and 4 month(s) ago. Patient History: Menarche at age 11. First Full-Term at age 29. Late child-bearing (after 30). Postmenopausal. Patient has history of breast feeding. 2001, Core Biopsy on the Right side. 2006, Bilateral Implants. Maternal aunt had breast cancer, age 70. Risk Values: Daysi 5 year model risk: 2.4%. NCI Lifetime model risk: 11.4%. Prior Study Comparison: 09/29/2008 Bilateral Diagnostic Mammogram, [facility]. 11/07/2009 Bilateral Diagnostic Mammogram, [facility]. 09/01/2019 Bilateral Screening Mammogram, [facility]. Tissue Density: There are scattered fibroglandular densities. Findings: Analyzed By CAD. Retropectoral are saline implants are demonstrated. There is no suspicious group of microcalcifications or new suspicious mass in either breast. Overall Assessment: Negative, BI-RAD 1 Management: Screening Mammogram of both breasts in 1 year. . Patient should continue monthly self-breast exams. A clinical breast exam by your physician is recommended on an annual basis. This exam should not preclude additional follow-up of suspicious palpable abnormalities. Note on Daysi scores and lifetime risk: 1. A Daysi score greater than 3% is considered moderate risk. If this is the case, consider specialist referral to assess eligibility for a risk reducing agent. 2. If overall lifetime risk for the development of breast cancer is 20% or higher, the patient may qualify for future screening with alternating mammogram and breast MRI. Electronically signed and approved by: Monik Bass M.D. Radiologist
== END | disposition home or self-care (01) ==
LOC: RADBDWWP 15:00
PROVIDERS: ATTEND Obstetrics & Gynecology
DX: Z12.31 Encounter for screening mammogram for malignant neoplasm of breast (principal); M81.0 Age-related osteoporosis without current pathological fracture
CPT/HCPCS: 77063; 77067; 77080

== ENCOUNTER → 2025-02-04 | Outpatient (CLI) | payer OTHER ==
[2025-02-05 02:39] LABS: Basophils # (A) 0.07 X 10*3/uL (0.00-0.10); Basophils % (A) 1.1 %; Eosinophils # (A) 0.14 X 10*3/uL (0.04-0.35); Eosinophils % (A) 2.1 %; HCT 41.6 % (37.2-46.3); HGB 13.3 g/dL (12.0-15.0); Lymphocytes # (A) 1.54 X 10*3/uL (0.90-5.00); Lymphocytes % (A) 23.5 %; MCH 29.7 pg (27.0-32.0); MCV 92.9 FL (80.0-97.0); Mean Platelet Volume 11.4 FL (9.5-12.2); Monocytes # (A) 0.66 X 10*3/uL (0.20-1.00); Monocytes % (A) 10.1 %; NRBC Per 100 WBC 0 X 10*3/uL (0.00-0.01); Neutrophils # (A) 4.11 X 10*3/uL (1.80-7.70); Neutrophils % (A) 62.9 %; Platelet Count 299 X 10*3/uL (140-440); RBC 4.48 X 10*6/uL (4.10-5.20); RDW 12.8 % (11.5-14.5); WBC 6.54 X 10*3/uL (4.50-10.00)
[2025-02-05 03:47] LABS: ALT 21 U/L (8-44); AST 24 U/L (13-35); Blood Urea Nitrogen 18.9 mg/dL (9.0-27.0); Calcium 9.5 mg/dL (8.7-10.3); Carbon Dioxide 29.5 mmol/L (21.6-31.8); Chloride 104 mmol/L (96-109); Glucose 89 mg/dL (70-110); Potassium 4.5 mmol/L (3.5-5.5); Sodium 142 mmol/L (135-145)
== END | disposition home or self-care (01) ==
LOC: LABWHC1 15:46
PROVIDERS: ATTEND Dermatology Procedural Dermatology
DX: L92.0 Granuloma annulare (principal); Z79.899 Other long term (current) drug therapy
CPT/HCPCS: 36415; 80048; 84450; 84460; 85025